=== PATIENT | female | born 1945 | race Caucasian/White ===

== ENCOUNTER 2020-08-14 07:55 | Day surgery (SDC) | payer OTHER, SELFPAY ==
[~2020-08-14] VITALS: Ht 162.6 cm; Wt 66.2 kg
[~2020-08-14 07:55] MED LIST: CEFAZOLIN SOD 1 GM in D5W 50 ML IV ONE
[2020-08-14] MEDS ORDERED: LOVA20TA2 PO (09:29)
[2020-08-14] MEDS ORDERED: LISI40TA4 PO (09:29)
[2020-08-14] MEDS ORDERED: GLIP5TAB26 PO (09:29)
[2020-08-14] MEDS ORDERED: DET2 PO (09:29)
[2020-08-14] MEDS ORDERED: AMLO5TAB4 PO (09:29)
[2020-08-14] MEDS ORDERED: XALEYE OP (09:29)
[2020-08-14] MEDS ORDERED: ASPI-1393 PO (09:29)
[2020-08-14] MEDS ORDERED: METF-510 PO (09:29)
[2020-08-14] MEDS ORDERED: SUGAMMADEX SODIUM 200 MG/2 ML VIAL IV ONE (11:29)
[2020-08-14] MEDS ORDERED: PROPOFOL 200MG/ 20ML VIAL (DIPRIVAN) IV ONE (11:29)
[2020-08-14] MEDS ORDERED: DESFLURANE 15 MIN GAS INH ONE (11:29)
[2020-08-14] MEDS ORDERED: DEXAMETHASONE SOD PHOSPHATE 4 MG/ML VIAL IVP ONE (11:29)
[2020-08-14] MEDS ORDERED: fentaNYL CITRATE/PF 100 MCG/2 ML AMP IVP ONE (11:29)
[2020-08-14] MEDS ORDERED: ONDANSETRON HCL 4 MG/2 ML VIAL IVP ONE (11:29)
[2020-08-14] MEDS ORDERED: MIDAZOLAM HCL 5 MG/5 ML VIAL IVP ONE (11:29)
[2020-08-14] MEDS ORDERED: LR 500 ML IV.SOLN IV ONE (11:29)
[2020-08-14] MEDS ORDERED: KETOROLAC TROMETHAMINE 30 MG VIAL IVP ONE (11:29)
[2020-08-14] MEDS ORDERED: ROCURONIUM BROMIDE 10 MG/ML (ZEMURON) IV ONE (11:29)
[2020-08-14] MEDS ORDERED: NS IRRIG SOLN 1000 ML IR ONE (11:29)
[2020-08-14] MEDS ORDERED: LR 1,000 ML IV SCH (12:30)
[2020-08-14] MEDS ORDERED: MEPERIDINE HCL/PF 25 MG/ML DISP.SYRIN IVP PRN (12:30)
[2020-08-14] MEDS ORDERED: LABETALOL 100 MG/ 20ML VIAL IVP PRN (12:30)
[2020-08-14] MEDS ORDERED: METOCLOPRAMIDE HCL 10 MG/2 ML VIAL IVP PRN (12:30)
[2020-08-14] MEDS ORDERED: HYDROmorphone 1 MG INJ. 1 MG/ML AMPUL IVP PRN ×3 (12:30→14:30)
[2020-08-14] MEDS ORDERED: hydrALAZINE HCL 20 MG/ML VIAL IVP PRN (12:30)
[2020-08-14] MEDS ORDERED: ONDANSETRON HCL 4 MG/2 ML VIAL IVP PRN ×2 (12:30→14:30)
[2020-08-14] MEDS ORDERED: MIDAZOLAM HCL 2 MG/2 ML VIAL (VERSED) IVP PRN (12:30)
[2020-08-14] MEDS ORDERED: D5/0.45 NS 1,000 ML IV SCH (14:30)
[2020-08-14] MEDS ORDERED: HYDROcodone/ACETAMIN 5-325 MG TAB (NORCO/ VICODIN) PO PRN ×2 (14:30)
[2020-08-14 16:29] VITALS: BP_SYST 128
[2020-08-14] MEDS: CEFAZOLIN 1 GM IVPB PREMIX 50 ML IV SCH ×2 (17:14→22:56)
[2020-08-14] MEDS ORDERED: ATORVASTATIN 10 MG TABLET PO SCH (18:00)
[2020-08-14] MEDS ORDERED: LOVASTATIN 20 MG TABLET PO SCH (18:00)
[2020-08-14 20:30] VITALS: BP_SYST 132
[2020-08-14] MEDS ORDERED: TOLTERODINE TARTRATE ER 2 MG CAP.ER.24H PO SCH (21:00)
[2020-08-14] MEDS ORDERED: lisinopriL 20 MG TABLET PO SCH (21:00)
[2020-08-14] MEDS ORDERED: LATANOPROST 2.5 ML DROPS (XALATAN) OP SCH (21:00)
[2020-08-14] MEDS ORDERED: amLODIPine BESYLATE 5 MG TABLET PO SCH (21:00)
[2020-08-14] MEDS ORDERED: metFORMIN HCL 500 MG TABLET ONE (22:43)
[2020-08-14] MEDS: FAMOTIDINE PF 20 MG/2 ML VIAL IVP SCH (22:46)
[2020-08-14] MEDS: glipiZIDE XL 5 MG TAB ( GLUCOTROL XL) PO SCH (22:48)
[2020-08-14] MEDS: OXYBUTYNIN CHLORIDE 5 MG TABLET PO SCH (22:48)
[2020-08-15] MEDS ORDERED: 0.45% NACL 1,000 ML IV SCH (01:00)
[2020-08-15] MEDS ORDERED: INSULIN REGULAR, HUMAN 100 UNITS/ML, 10 ML VIAL (humuLIN R) SUBCUT PRN (01:00)
[2020-08-15 04:00] VITALS: BP_SYST 113
[2020-08-15 07:45] VITALS: BP_SYST 111
[2020-08-15] MEDS ORDERED: ASPIRIN 81 MG TABLET(ECOTRIN) PO SCH (09:00)
[2020-08-15] MEDS: FAMOTIDINE PF 20 MG/2 ML VIAL IVP SCH (09:46)
[2020-08-15] MEDS: OXYBUTYNIN CHLORIDE 5 MG TABLET PO SCH (09:46)
[2020-08-15] MEDS: glipiZIDE XL 5 MG TAB ( GLUCOTROL XL) PO SCH (09:46)
[2020-08-15 11:36] VITALS: BP_SYST 111
[2020-08-15 12:00] VITALS: BP_SYST 117
== END 2020-08-15 12:35 | disposition home or self-care (01) ==
LOC: SDS 07:55 → SMU 07:55 → SDS 08-15 12:35
PROVIDERS: ATTEND Colon & Rectal Surgery
DX: C50.911 Malignant neoplasm of unspecified site of right female breast (principal); E78.2 Mixed hyperlipidemia; I12.9 Hypertensive chronic kidney disease with stage 1 through stage 4 chronic kidney disease, or unspecified chronic kidney disease; E11.22 Type 2 diabetes mellitus with diabetic chronic kidney disease; N18.2 Chronic kidney disease, stage 2 (mild); E11.42 Type 2 diabetes mellitus with diabetic polyneuropathy; F13.21 Sedative, hypnotic or anxiolytic dependence, in remission; Z87.891 Personal history of nicotine dependence; Z20.828 Contact with and (suspected) exposure to other viral communicable diseases; Z79.899 Other long term (current) drug therapy
CPT/HCPCS: 19303; 78195; 82962; 87081; 88307; 88341; 88342; A9541; C9399; J0690 ×2; J1100; J1885; J2250; J2405; J2704; J3010; J3490 ×2; J7060; U0003; J7120